=== PATIENT | female | born 1965 | race Caucasian/White ===

== ENCOUNTER 2022-03-28 09:36 | Emergency (ER) | payer BC ==
[2022-03-28] MEDS ORDERED: METOCLOPRAMIDE 5 MG/ML 2 ML VIAL IVP STA (09:48)
[2022-03-28] MEDS ORDERED: HYDROmorphone 0.5 MG/0.5 ML SYRINGE IVP STA (09:48)
[2022-03-28] MEDS ORDERED: diphenhydrAMINE 50 MG/ML 1 ML VIAL IVP STA (09:48)
[2022-03-28] MEDS ORDERED: SODIUM CHLORIDE 0.9% 1,000 ML IV STA (09:48)
[2022-03-28] MEDS ORDERED: SODIUM CHLORIDE 0.9% 500 ML 500 ML IV STA (09:48)
[2022-03-28 09:49] VITALS: TEMP 97
--- NOTE | 2022-03-28 09:58 | ED ---
Headache HPI - General Stated Complaint: Headache Time Seen by Provider: 03/28/22 09:40 Source: patient, EMS, RN notes reviewed Mode of arrival: EMS - History of Present Illness Initial Comments: She 6-year-old female with a benign past medical history who was brought in today because of severe headache she states is somewhat global associated with nausea vomiting she is out when it started. She was found in a pool of emesis per paramedics. No recent trauma reported no fevers chills sweats she states the pain is somewhat sharp or just hurts is 10/10 severity. She denies any previous headaches like this. No weakness to her upper or lower extremities her recall as to the onset is today. MD Complaint: headache - Related Data Allergies Allergy/AdvReac Type Severity Reaction Status Date / Time No Known Allergies Allergy Verified 03/28/22 09:49 Review of Systems ROS Statement: Those systems with pertinent positive or pertinent negative responses have been documented in the HPI. ROS Other: All systems not noted in ROS Statement are negative. Past Medical History Past Medical History: No Reported History History of Any Multi-Drug Resistant Organisms: None Reported Past Surgical History: No Surgical Hx Reported Past Psychological History: No Psychological Hx Reported Smoking Status: Never smoker Past Alcohol Use History: None Reported Past Drug Use History: None Reported General Exam - General Exam Comments Initial Comments: This is a well-developed well-nourished awake alert oriented times female she is aware of her surroundings and aware she has she just has minimal recall of the o nset of the headache and some the events surrounding it Limitations: no limitations General appearance: alert, anxious, in distress Head exam: Present: atraumatic, normocephalic, normal inspection, other (No tenderness palpation of the scalp no temporal artery tenderness) Eye exam: Present: normal appearance, PERRL, EOMI. Absent: scleral icterus, conjunctival injection, periorbital swelling ENT exam: Present: normal exam, mucous membranes moist Neck exam: Present: normal inspection, full ROM, other (No stridor JVD or bruits). Absent: tenderness, meningismus, lymphadenopathy Respiratory exam: Present: normal lung sounds bilaterally. Absent: respiratory distress, wheezes, rales, rhonchi, stridor Cardiovascular Exam: Present: regular rate, normal rhythm, normal heart sounds. Absent: systolic murmur, diastolic murmur, rubs, gallop, clicks GI/Abdominal exam: Present: soft, normal bowel sounds. Absent: distended, tenderness, guarding, rebound, rigid, bruit, pulsatile mass Extremities exam: Present: normal inspection, full ROM, normal capillary refill. Absent: tenderness, pedal edema, joint swelling, calf tenderness Back exam: Present: normal inspection Neurological exam: Present: alert, oriented X3, CN II-XII intact Psychiatric exam: Present: normal affect, anxious Skin exam: Present: warm, dry, intact, normal color. Absent: rash Course Vital Signs 03/28/22 03/28/22 03/28/22 09:38 10:10 10:21 Temperature 97 F L Pulse Rate 68 63 55 L Respiratory 18 18 18 Rate Blood Pressure 155/98 157/103 158/110 O2 Sat by Pulse 98 94 L 93 L Oximetry 03/28/22 03/28/22 03/28/22 10:22 10:30 10:40 Temperature Pulse Rate 57 L 50 L Respiratory 35 H 10 L 10 L Rate Blood Pressure 158/110 149/114 O2 Sat by Pulse 98 93 L 92 L Oximetry 03/28/22 03/28/22 03/28/22 10:50 10:54 11:00 Temperature Pulse Rate 52 L 63 51 L Respiratory 14 18 17 Rate Blood Pressure 155/105 156/104 154/112 O2 Sat by Pulse 93 L 95 91 L Oximetry 03/28/22 03/28/22 03/28/22 11:10 11:16 11:20 Temperature Pulse Rate 51 L 52 L 46 L Respiratory 13 11 L 11 L Rate Blood Pressure 128/82 135/88 135/88 O2 Sat by Pulse 90 L 91 L 90 L Oximetry 03/28/22 03/28/22 03/28/22 11:30 11:40 11:50 Temperature Pulse Rate 55 L 68 50 L Respiratory 14 19 14 Rate Blood Pressure 145/84 109/57 127/77 O2 Sat by Pulse 90 L 90 L 89 L Oximetry - Reevaluation(s) Reevaluation #1: 03/28/22 10:39 Patient did require more pain medication due to the severe headache evidence of inner cerebral bleed [place] CAT scan pending a code stroke was called and discussed the case with Dr. Amezcua. The current plan is to transfer the patient to [facility]. I did discuss this with the patient family members. Reevaluation #2: 03/28/22 11:54 Patient did get some relief from her headache after IV medications patient also was placed on nicardipine drip Reevaluation #3: 03/28/22 11:55 CT of the [place] shows evidence of a left-sided anterior making artery aneurysm with evidence of possible thrombosis and rupture considered. Please see the complete report Dr. Javier Soliz did review this as well as our radiologist at this facility. 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 Patient is to be transferred to [facility] for inpatient evaluation and treatment. I did have multiple discussions with the family as well as family members. Patient was placed on a nicardipine drip. - Lab Data Result diagrams: 03/28/22 10:25 03/28/22 10:25 Lab Results 03/28/22 03/28/22 03/28/22 Range/Units 10:25 10:25 10:25 WBC 11.1 H (3.8-10.6) k/uL RBC 4.01 (3.80-5.40) m/uL Hgb 12.4 (11.4-16.0) gm/dL Hct 36.0 (34.0-46.0) % MCV 89.8 (80.0-100.0) fL MCH 30.8 (25.0-35.0) pg MCHC 34.3 (31.0-37.0) g/dL RDW 13.0 (11.5-15.5) % Plt Count 288 (150-450) k/uL MPV 8.3 Neutrophils % 84 % Lymphocytes % 9 % Monocytes % 5 % Eosinophils % 1 % Basophils % 0 % Neutrophils # 9.4 H (1.3-7.7) k/uL Lymphocytes # 1.0 (1.0-4.8) k/uL Monocytes # 0.5 (0-1.0) k/uL Eosinophils # 0.1 (0-0.7) k/uL Basophils # 0.0 (0-0.2) k/uL PT 11.8 (9.0-12.0) sec INR 1.1 (<1.2) APTT 23.3 (22.0-30.0) sec Sodium 137 (137-145) mmol/L Potassium 3.5 (3.5-5.1) mmol/L Chloride 106 (98-107) mmol/L Carbon Dioxide 20 L (22-30) mmol/L Anion Gap 11 mmol/L BUN 13 (7-17) mg/dL Creatinine 0.65 (0.52-1.04) mg/dL Est GFR (CKD-EPI)AfAm >90 (>60 ml/min/1.73 sqM) Est GFR (CKD-EPI)NonAf >90 (>60 ml/min/1.73 sqM) Glucose 147 H (74-99) mg/dL Calcium 8.3 L (8.4-10.2) mg/dL Magnesium 1.8 (1.6-2.3) mg/dL Total Bilirubin 0.3 (0.2-1.3) mg/dL AST 20 (14-36) U/L ALT 18 (4-34) U/L Alkaline Phosphatase 52 (38-126) U/L Creatine Kinase 96 (30-135) U/L Troponin I (0.000-0.034) ng/mL Total Protein 5.9 L (6.3-8.2) g/dL Albumin 3.6 (3.5-5.0) g/dL 03/28/22 Range/Units 10:25 WBC (3.8-10.6) k/uL RBC (3.80-5.40) m/uL Hgb (11.4-16.0) gm/dL Hct (34.0-46.0) % MCV (80.0-100.0) fL MCH (25.0-35.0) pg MCHC (31.0-37.0) g/dL RDW (11.5-15.5) % Plt Count (150-450) k/uL MPV Neutrophils % % Lymphocytes % % Monocytes % % Eosinophils % % Basophils % % Neutrophils # (1.3-7.7) k/uL Lymphocytes # (1.0-4.8) k/uL Monocytes # (0-1.0) k/uL Eosinophils # (0-0.7) k/uL Basophils # (0-0.2) k/uL PT (9.0-12.0) sec INR (<1.2) APTT (22.0-30.0) sec Sodium (137-145) mmol/L Potassium (3.5-5.1) mmol/L Chloride (98-107) mmol/L Carbon Dioxide (22-30) mmol/L Anion Gap mmol/L BUN (7-17) mg/dL Creatinine (0.52-1.04) mg/dL Est GFR (CKD-EPI)AfAm (>60 ml/min/1.73 sqM) Est GFR (CKD-EPI)NonAf (>60 ml/min/1.73 sqM) Glucose (74-99) mg/dL Calcium (8.4-10.2) mg/dL Magnesium (1.6-2.3) mg/dL Total Bilirubin (0.2-1.3) mg/dL AST (14-36) U/L ALT (4-34) U/L Alkaline Phosphatase (38-126) U/L Creatine Kinase (30-135) U/L Troponin I 0.222 H* (0.000-0.034) ng/mL Total Protein (6.3-8.2) g/dL Albumin (3.5-5.0) g/dL - EKG Data -: EKG Interpreted by Me EKG shows normal: sinus rhythm EKG Comments: Sinus bradycardia rate 56 IA interval 159 QRS 107 QT/QTC 492/484 prolongation QT noted - Radiology Data Radiology results: report reviewed (I did discuss the findings with the radiologist are is evidence of intercerebral bleeding aneurysm suspected [place] CT pending), image reviewed Critical Care Time Critical Care Time: Yes Total Critical Care Time: 45 Critical Care Time: Critical care time includes initial presentation with history physical labs x- rays multiple reevaluation the patient multiple discussions with family members discussion with multiple physicians regarding the findings discussed with the paramedics both delivering the patient to this facility and V1 sending to [facility]. Disposition Clinical Impression: Hemorrhagic cerebrovascular accident (CVA) Disposition: OTHER INSTITUTION NOT DEFINED Condition: Serious Referrals: None,Stated [Primary Care Provider] - 1-2 days Decision Date: 03/28/22 Decision Time: 11:00 - Out of Hospital Transfer - Req. Specs Out of Hospital Transfer - Requested Specifics: Neurological ICU
[2022-03-28] MEDS ORDERED: HYDROmorphone 1 MG/ML 1 ML SYRINGE IVP STA (10:22)
[2022-03-28] MEDS ORDERED: niCARdipine 20 MG in SODIUM CHLORIDE 0.9% 192 ML IV SCH (10:30)
--- NOTE | 2022-03-28 10:32 | CT ---
EXAMINATION TYPE: CT brain wo con DATE OF EXAM: 03/28/2022 COMPARISON: None available HISTORY: Severe WAY CT DLP: 1099.4 mGycm Automated exposure control for dose reduction was used. TECHNIQUE: CT scan of the brain is performed without IV contrast administration. FINDINGS: Extensive subarachnoid hemorrhage mainly centered over the [place] region, perimesencephalic cistern and extending into the MCA fissures as well as along the falx bilaterally. Some blood is see n within the fourth ventricle with questionable scattered minimal subdural blood. There is effacement of the basal cisterns with swelling and crowding of the posterior fossa which may suggest increased intracranial pressure. No antonio tonsillar herniation yet. No acute parenchymal hemorrhage. No gross acute cortical infarct. No midline shift or signs of ventri cular obstruction. No gross space-occupying lesion or vasogenic edema. Unremarkable orbits. Clear visualized paranasal sinuses and mastoid air cells. Unremarkable calvarial bones. IMPRESSION: Extensive subarachnoid hemorrhage as detailed above, likely secondary to aneurysmal rupture. Recommen d further CTA of [place] and urgent neurovascular intervention consultation. Findings were discussed with the referring ER physician immediately after the CT scan was performed.
[2022-03-28 10:42] LABS: Basophils % (A) 0 %; Eosinophils # (A) 0.1 k/uL (0-0.7); Eosinophils % (A) 1 %; HGB 12.4 gm/dL (11.4-16.0); Lymphocytes % (A) 9 %; MCH 30.8 pg (25.0-35.0); MCHC 34.3 g/dL (31.0-37.0); MCV 89.8 fL (80.0-100.0); Mean Platelet Volume 8.3; Monocytes # (A) 0.5 k/uL (0-1.0); Monocytes % (A) 5 %; Neutrophils # (A) 9.4 k/uL (1.3-7.7); Neutrophils % (A) 84 %; Platelet Count 288 k/uL (150-450); RBC 4.01 m/uL (3.80-5.40); WBC 11.1 k/uL (3.8-10.6)
--- NOTE | 2022-03-28 10:42 | CT ---
EXAMINATION TYPE: CT angio COW resighini of mirza DATE OF EXAM: 03/28/2022 INDICATION: abn brain CT CT DLP: 1033.8 mGy.cm Automated Exposure Control for Dose Reduction was Utilized. TECHNIQUE AND CONTRAST: CT scan of the brain is performed with IV Contrast, as per CTA protocol. The patient injected with 10 0 mL of Isovue 370. 3-D reconstruction images were generated on an independent workstation and review ed. COMPARISON: Unenhanced scan performed earlier same day FINDINGS: Vascular irregularity is seen at the left side of the anterior communicating artery measuring about 6 .5 x 4 x 5 mm. This could represent a ruptured or partially thrombosed aneurysm. This could be the un derlying etiology of the previously seen extensive subarachnoid hemorrhage at that location. No other definite intracranial aneurysm identified. No significant arterial stenosis, occlusion or di ssection. Patent major intracranial venous sinuses. No intracranial abnormal enhancement. 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 Recommend urgent neurovascular intervention consultation.
[2022-03-28 10:51] LABS: INR 1.1 (<1.2); Partial Thromboplastin Time 23.3 sec (22.0-30.0); Prothrombin Time 11.8 sec (9.0-12.0)
[2022-03-28 10:57] LABS: ALT 18 U/L (4-34); AST 20 U/L (14-36); African American GFR (CKD) >90 (>60 ml/min/1.73 sqM); Albumin 3.6 g/dL (3.5-5.0); Alkaline Phosphatase 52 U/L (38-126); Anion Gap 11 mmol/L; Blood Urea Nitrogen 13 mg/dL (7-17); Calcium 8.3 mg/dL (8.4-10.2); Carbon Dioxide 20 mmol/L (22-30); Chloride 106 mmol/L (98-107); Creatine Kinase 96 U/L (30-135); Glucose 147 mg/dL (74-99); Magnesium 1.8 mg/dL (1.6-2.3); Non-African American GFR(CKD) >90 (>60 ml/min/1.73 sqM); Potassium 3.5 mmol/L (3.5-5.1); Sodium 137 mmol/L (137-145); Total Bilirubin 0.3 mg/dL (0.2-1.3); Total Protein 5.9 g/dL (6.3-8.2)
[2022-03-28 12:08] VITALS: BP 121/78; PULSE 53
[2022-03-28 12:19] VITALS: RESP 18
== END 2022-03-28 12:16 | disposition other institution (70) ==
LOC: EC 09:36
DX: I62.9 Nontraumatic intracranial hemorrhage, unspecified (principal)
CPT/HCPCS: 99285; 96365; 96366; 96361; 96375; 96376; 36415; 93005; 80053; 82550; 83735; 84484; 85025; 85610; 85730; 70496; 70450; J1200; J2765; J1170 ×2; Q9967

== ENCOUNTER 2022-07-16 10:45 | Day surgery (SDC) | payer BC ==
[2022-07-16 11:06] VITALS: TEMP 97.7
[2022-07-16] MEDS ORDERED: SODIUM CHLORIDE 0.9% 500 ML 500 ML IV ONE (11:06)
[2022-07-16] MEDS ORDERED: fentaNYL (PF) 50 MCG/ML 2 ML AMP ONE (12:00)
[2022-07-16] MEDS: BENZOCAINE SPRAY 1 CAN MUCOUS MEM ONE ×2 (12:17→12:30)
[2022-07-16] MEDS ORDERED: MIDAZOLAM 2 MG/2 ML VIAL IV ONE (12:31)
[2022-07-16] MEDS: fentaNYL (PF) 50 MCG/ML 2 ML AMP IV ONE ×2 (12:31→12:33)
[2022-07-16] MEDS: MIDAZOLAM 2 MG/2 ML VIAL IV ONE ×2 (12:33→12:34)
--- NOTE | 2022-07-16 12:49 | P.PCN ---
Date of Procedure: 07/16/22 Operative Findings: TRANSESOPHAGEAL ECHOCARDIOGRAM SUPPLY CHAIN ASSOCIATE: SHAYLEE TRUONG MD, RPVI INDICATION: Stroke SEDATION: Conscious sedation COMPLICATION: None LEVEL OF SEDATION Moderate sedation length of 18 minutes PROCEDURE DESCRIPTION: After obtaining an informed consent, the patient was brought to transesophageal echocardiogram room. Pulse oximetry and heart monitors were attached to the patient. The patient throat was sprayed using lidocaine. The patient was turned into left lateral position. After that a bite guard was placed. After an appropriate conscious sedation was initiated, the transesophageal echocardiogram was advanced through a bite guard into the mid esophagus. A 2-D echocardiogram images, color Doppler images, continuous wave images, pulse-wave images, of various cardiac structure were performed. After that the transesophageal echocardiogram probe was advanced into the stomach and fixed to obtain transgastric view was. The probe was brought into the mid esophagus. Inter-atrial septum was interrogated using 2D images, color Doppler images, and then contrast study. After that transesophageal echocardiogram was withdrawn out and upon withdrawing the descending thoracic aorta all the way up to the arch was evaluated. FINDING: Left ventricular dimension and systolic function appeared to be within normal limits. Right ventricular dimension and systolic function appeared to be within normal limits. The aortic valve is trileaflet valve without stenosis or regurgitation. Mitral valve is normal was mild MR. There is moderate tricuspid regurgitation seen. The left atrial appendage appeared to be free from any thrombus. The interatrial septum appeared to be aneurysmal was evidence off at least moderate size patent foramen ovale with bidirectional shunt CONCLUSION: 1. Patent foramen ovale was evidence of [id number] and potentially [id number] shunt 2. Normal left ventricular dimension and systolic from 3. Normal intracardiac valves 4. Normal left atrial appendage 5. No evidence of pericardial effusion
[2022-07-16 12:56] VITALS: RESP 10
[2022-07-16 13:35] VITALS: BP 142/75; PULSE 88
== END 2022-07-16 13:45 | disposition home or self-care (01) ==
LOC: CATHCVL 10:45
PROVIDERS: ATTEND Internal Medicine Interventional Cardiology
DX: Q21.12 Patent foramen ovale (principal); I36.1 Nonrheumatic tricuspid (valve) insufficiency; I34.0 Nonrheumatic mitral (valve) insufficiency; I10 Essential (primary) hypertension; E78.5 Hyperlipidemia, unspecified; Z82.49 Family history of ischemic heart disease and other diseases of the circulatory system
CPT/HCPCS: 93312; 93320; 93325; J2250; J3010

== ENCOUNTER 2022-09-18 08:17 | Day surgery (SDC) | payer BC ==
[2022-09-10 11:12] VITALS: BMI 25.0
[~2022-09-18 08:17] MED LIST: SODIUM CHLORIDE 0.9% 1,000 ML in EMPTY BAG 1 BAG IV ONE
[2022-09-18] MEDS ORDERED: SODIUM CHLORIDE 0.9% 1,000 ML IV ONE (08:25)
[2022-09-18 08:43] LABS: HCT 39.4 % (34.0-46.0); HGB 13.6 gm/dL (11.4-16.0); MCH 30.6 pg (25.0-35.0); MCHC 34.6 g/dL (31.0-37.0); MCV 88.4 fL (80.0-100.0); Mean Platelet Volume 8.7; Platelet Count 307 k/uL (150-450); RBC 4.46 m/uL (3.80-5.40); RDW 12.9 % (11.5-15.5); WBC 5.2 k/uL (3.8-10.6)
[2022-09-18 08:57] LABS: African American GFR (CKD) >90 (>60 ml/min/1.73 sqM); Anion Gap 8 mmol/L; Blood Urea Nitrogen 12 mg/dL (7-17); Calcium 9.4 mg/dL (8.4-10.2); Carbon Dioxide 25 mmol/L (22-30); Chloride 109 mmol/L (98-107); Glucose 98 mg/dL (74-99); Non-African American GFR(CKD) >90 (>60 ml/min/1.73 sqM); Potassium 3.7 mmol/L (3.5-5.1); Sodium 142 mmol/L (137-145)
[2022-09-18] MEDS ORDERED: HEPARIN SODIUM 1,000 UN/ML (10ML VL) ONE (08:58)
[2022-09-18] MEDS ORDERED: MIDAZOLAM 2 MG/2 ML VIAL IV ONE (09:10)
[2022-09-18] MEDS: LIDOCAINE 1% INJ 10MG/ML (30 ML VIAL-PF) SQ ONE ×2 (09:15→09:17)
[2022-09-18] MEDS: HEPARIN SODIUM 1,000 UN/ML (10ML VL) IV ONE ×2 (09:24→09:37)
[2022-09-18] MEDS ORDERED: IOPAMIDOL-370 50ML BTL INJ ONE (09:42)
--- NOTE | 2022-09-18 09:56 | P.PCN ---
Date of Procedure: 09/18/22 Operative Findings: PERCUTANEOUS CLOSURE OF FENESTRATED INTERATRIAL SEPTUM PERFORMING PHYSICIAN: Thomas Shen MD, VI PROCEDURE PERFORMED: 1. Successful percutaneous closure of fenestrated atrial septal defect (ASD) using 30 mm Amplatzer PFO Occluder with an excellent results and without any residual shunt. 2. Intracardiac echocardiogram imaging. 3. Right atrial angiogram. 4. Ultrasound-guided access of the right common femoral vein 2 INDICATION: This is a 56-year-old female patient who was diagnosis and he was fenestrated interatrial septum with bidirectional shunt. She was brought today to undergo percutaneous closure APPROACH: Right common femoral vein 2 COMPLICATION: None. LEVEL OF SEDATION: Moderate with sedation length of 30 minutes. PROCEDURE DESCRIPTION: After obtaining informed consent, the patient was brought to the cardiac laboratory courier. The right common femoral vein was cannulated x2 using micropuncture technique under ultrasound guidance, the micropuncture wire passed easily, then I placed two 8-Comoran sheath in the right groin. Subsequently I cannulated the left common femoral vein with the same technique and I placed an 8-Comoran sheath there as well. At that point, anticoagulation was initiated using heparin and the patient was given a bolus of 5,000 units of heparin IV with continuous ACT monitoring throughout the procedure. After that, the intracardiac echocardiogram probe was advanced through one of the venous sheath all the way to the right atrium under fluoroscopy guidance where we did interrogate the interatrial septum and identified the patent foramen ovale which was measured about 30 mm. S ubsequently, I did cross the defect using 0.035 J-wire with the backup support of multipurpose catheter. The wire was advanced all the way to the left upper pulmonary vein and subsequently the catheter was advanced over the wire to the left upper pulmonary vein. The 0.035 J-wire was pulled out and then I advanced a maria t wire. Subsequently, the multipurpose catheter was withdrawn out and the wire was left in the left upper pulmonary vein. After that, I did prep the Amplatzer PFO occluder under saline. The device was loaded into the payloader machine operator, which was attached to the sheath. Subsequently, I did exchange my 8-Comoran sheath into the Shuttle sheath over a 0.035 maria t wire. The sheath was advanced all the way under fluoroscopy guidance to the left atrium. Subsequently, the dilator of the sheath was withdrawn out along with the wire. After that, I did load the Amplatzer occluder under continuous saline flush to the sheath. The device was advanced all the way through the sheath were I did where I did deploy initially the left atrial occluder and then I pulled back the sheath and the left atrial occluder all the way to the interatrial septum and then I deployed the right atrial occluder after that. Before I released the device, I did interrogate the septum using ice images on multiple views. After I realized that the device was stable enough and in good position the device was released. Interrogation using ice was also performed after the device was released. By the end I did right atrial angiogram. The procedure was completed without any complication. POSTPROCEDURE MANAGEMENT: 1. Dual anti-platelet therapy. 2. An echo in 24 hours, in 1 week, in 4 weeks, as well as in 6 months.
[2022-09-18] MEDS ORDERED: SODIUM CHLORIDE 0.9% 1,000 ML IV SCH (10:00)
[2022-09-18] MEDS ORDERED: hydrALAZINE HCL 20 MG/ML 1 ML VIAL IVP PRN (10:30)
[2022-09-19] MEDS ORDERED: CLOPIDOGREL 75 MG TAB PO SCH (09:00)
[2022-09-19] MEDS ORDERED: lisinopriL 20 MG TAB PO SCH (09:00)
[2022-09-19] MEDS ORDERED: ASPIRIN 325 MG TAB PO SCH (09:00)
[2022-09-19 09:13] VITALS: TEMP 98
--- NOTE | 2022-09-19 10:45 | XR ---
EXAMINATION TYPE: XR chest 2V DATE OF EXAM: 09/19/2022 COMPARISON: None INDICATION: ASD PFO placement TECHNIQUE: Frontal and lateral views of the chest are obtained. FINDINGS: The heart size is normal. The pulmonary vasculature is normal. The lungs are clear. Azygos fissure is present. Cardiac medical intern placement is evident. IMPRESSION: 1. No acute pulmonary process.
--- NOTE | 2022-09-19 11:08 | CA ---
Transthoracic Echo Report Name: Tiffanie South Age: 56 Gender: F : 1965 Exam Date: 09/19/2022 09:06 Exam Location: [facility] Ht (in): 65 Wt (lb): 165 Ordering Physician: Thomas Shen MD ([id number]) Attending/Referring Phys: Head Soft Sugar Operator Mimi Tai RDCS Procedure CPT: Indications: Post ASD/PFO Insertion Cardiac Hx: Limited Study: Pt is post ASD/PFO closure. Technical Quality: Contrast 1: Total Dose (mL): Contrast 2: Total Dose (mL): MEASUREMENTS (Male / Female) Normal Values FINDINGS Left Ventricle Left ventricular ejection fraction is estimated at 55 %. Right Ventricle Right Atrium Left Atrium ASD Device in position. Mitral Valve Aortic Valve Tricuspid Valve Pulmonic Valve Pericardium No pericardial effusion. Aorta CONCLUSIONS Stable atrial septal device was no residual shunt No pericardial effusion Previewed by: Dr. Thomas Shen MD (Electronically Signed) Final Date: 19 September 2022 11:07
--- NOTE | 2022-09-19 11:37 | P.DS ---
Providers Attending physician: Thomas Shen Primary care physician: [facility] Course: The patient is a pleasant 56-year-old female patient was underwent yesterday successful percutaneous closure of patent foramen ovale. She was seen this morning beach she is asymptomatic which is hemodynamic is stable. The right groin is soft and nontender and with no bruises. The echo revealed stable atrial septal device with no residual shunt and no pericardial effusion The patient is going to be discharged home Plan - Discharge Summary Discharge Rx Participant: No New Discharge Prescriptions: Continue Atorvastatin Calcium 40 mg PO DAILY Ticagrelor [Brilinta] 1 tab PO BID lisinopriL [Zestril] 20 mg PO DAILY Aspirin 81 mg PO DAILY Discharge Medication List Aspirin 81 mg PO DAILY 07/12/22 [History] Atorvastatin Calcium 40 mg PO DAILY 07/12/22 [History] Ticagrelor [Brilinta] 1 tab PO BID 07/12/22 [History] lisinopriL [Zestril] 20 mg PO DAILY 07/12/22 [History] Follow up Appointment(s)/Referral(s): Thomas Shen MD [STAFF PHYSICIAN] - 1 Week Patient Instructions/Handouts: Moderate Sedation (DC), Atrial Septal Defect Repair (DC), Patent Foramen Ovale (DC) Activity/Diet/Wound Care/Special Instructions: SEE PFO/ASD CLOSURE PROCEDURE DISCHARGE INSTRUCTIONS FOR DETAILED LIST. YOUR 1 WEEK, ONE MONTH, 6 MONTH AND ONE YEAR FOLLOW UP APPTS WILL BE ON THAT INSTRUCTION ALSO.
[2022-09-19 13:12] VITALS: BP 134/88; PULSE 93; RESP 17
== END 2022-09-19 13:21 | disposition home or self-care (01) ==
LOC: CATHCVL 08:17 → 3SCARD 09:45 → CATHCVL 09-19 13:21
PROVIDERS: ATTEND Internal Medicine Interventional Cardiology
DX: Q21.11 Secundum atrial septal defect (principal); Q21.12 Patent foramen ovale; I34.0 Nonrheumatic mitral (valve) insufficiency; I34.1 Nonrheumatic mitral (valve) prolapse; I10 Essential (primary) hypertension; E78.5 Hyperlipidemia, unspecified; Z86.79 Personal history of other diseases of the circulatory system; Z79.02 Long term (current) use of antithrombotics/antiplatelets; Z79.899 Other long term (current) drug therapy; Z79.82 Long term (current) use of aspirin; Z79.1 Long term (current) use of non-steroidal anti-inflammatories (NSAID); Z87.820 Personal history of traumatic brain injury
CPT/HCPCS: 93306; 93580; 80048; 85027; 71046; 93662; C1769 ×4; C1894 ×2; C1760; C1817; J2250; J0360; J0690; J2001; J1644; Q9967

== ENCOUNTER → 2023-12-12 | Outpatient (CLI) | payer BC ==
[2023-12-12 11:36] LABS: Basophils # (A) 0.05 X 10*3/uL (0.00-0.10); Eosinophils # (A) 0.15 X 10*3/uL (0.04-0.35); HCT 41.2 % (37.2-46.3); HGB 13.7 g/dL (12.0-15.0); Lymphocytes # (A) 0.94 X 10*3/uL (0.90-5.00); MCH 30.2 pg (27.0-32.0); MCHC 33.3 g/dL (32.0-37.0); MCV 90.9 FL (80.0-97.0); Mean Platelet Volume 11.1 FL (9.5-12.2); Monocytes # (A) 0.44 X 10*3/uL (0.20-1.00); Monocytes % (A) 8.9 %; NRBC Per 100 WBC 0 X 10*3/uL (0.00-0.01); Neutrophils # (A) 3.36 X 10*3/uL (1.80-7.70); Neutrophils % (A) 67.9 %; Platelet Count 260 X 10*3/uL (140-440); RBC 4.53 X 10*6/uL (4.10-5.20); WBC 4.95 X 10*3/uL (4.50-10.00)
[2023-12-12 11:55] LABS: ALT 22 U/L (8-44); AST 18 U/L (13-35); Albumin 4.7 g/dL (3.8-4.9); Albumin/Globulin Ratio 2.04 Ratio (1.60-3.17); Alkaline Phosphatase 52 U/L (41-126); Blood Urea Nitrogen 14.4 mg/dL (9.0-27.0); Carbon Dioxide 23.9 mmol/L (21.6-31.8); Chloride 109 mmol/L (96-109); Chol/HDL Ratio 2.59 Ratio; Creatine Kinase 97 U/L (26-186); Globulin 2.3 g/dL (1.6-3.3); Glucose 99 mg/dL (70-110); LDL Cholesterol,Calculated 95.7 mg/dL (0.0-131.0); Potassium 4.5 mmol/L (3.5-5.5); Sodium 144 mmol/L (135-145); T4, Free (Free Thyroxine) 1.17 ng/dL (0.80-1.80); Total Bilirubin 0.4 mg/dL (0.3-1.2); VLDL Calculation 15.32 mg/dL (5.00-40.00)
--- NOTE | 2023-12-15 17:59 | MM ---
Reason for Exam: Screening (asymptomatic). Baseline mammogram. Patient History: Menarche at age 14. Patient has no children. Right ovary removed at age 40. Postmenopausal. Sister had breast cancer, age 45. Sister had breast cancer, age 65. Risk Values: Connie 5 year model risk: 4.2%. NCI Lifetime model risk: 22.4%. Prior Study Comparison: Patient's first Mammogram. Tissue Density: The breasts are heterogeneously dense, which may obscure small masses. Findings: Analyzed By CAD. An obscured mass is suspected at the 10:00 position posterior left breast. No suspicious microcalcifications or discrete abnormality seen on the contralateral side. Overall Assessment: Incomplete: need additional imaging evaluation, BI-RAD 0 Management: Special View Mammogram of the left breast. Diagnostic Breast Ultrasound of the left breast. Include whole left breast ultrasound with scanning of the axilla. [facility] will attempt to contact patient to return for supplemental views and ultrasound if indicated. Electronically signed and approved by: Aislinn Batista M.D. Radiologist
== END | disposition home or self-care (01) ==
LOC: RADMAMWWP 07:11
PROVIDERS: ATTEND Family Medicine
DX: Z12.31 Encounter for screening mammogram for malignant neoplasm of breast (principal); I10 Essential (primary) hypertension; E78.5 Hyperlipidemia, unspecified; Z78.0 Asymptomatic menopausal state; Z80.3 Family history of malignant neoplasm of breast
CPT/HCPCS: 36415; 77063; 77067; 80053; 80061; 82550; 83036; 84439; 84443; 85025

== ENCOUNTER → 2023-12-20 | Outpatient (CLI) | payer BC ==
--- NOTE | 2023-12-20 14:08 | MM ---
Reason for Exam: Additional evaluation requested from abnormal screening. Last screening mammogram was performed less than 1 month ago. Patient History: Menarche at age 14. Patient has no children. Right ovary removed at age 40. Postmenopausal. Sister had breast cancer, age 45. Sister had breast cancer, age 65. Risk Values: Connie 5 year model risk: 4.2%. NCI Lifetime model risk: 22.4%. Prior Study Comparison: 12/12/2023 Bilateral MG 3D screening mammo w/cad, [facility]. Tissue Density: Left: The breasts are heterogeneously dense, which may obscure small masses. Findings: Analyzed By CAD. There is a mass at posterior depth slightly medial on CC view and posterior nipple line on MLO view. Measuring 24 x 19 mm at 5.2 cm from the nipple CC view. Overall Assessment: Incomplete: need additional imaging evaluation, BI-RAD 0 Management: Diagnostic Breast Ultrasound of the left breast. Results were given to the patient verbally at the time of exam. Patient should continue monthly self-breast exams. A clinical breast exam by your physician is recommended on an annual basis. This exam should not preclude additional follow-up of suspicious palpable abnormalities. Note on Connie scores and lifetime risk: 1. A Connie score greater than 3% is considered moderate risk. If this is the case, consider specialist referral to assess eligibility for a risk reducing agent. 2. If overall lifetime risk for the development of breast cancer is 20% or higher, the patient may qualify for future screening with alternating mammogram and breast MRI. Electronically signed and approved by: Emile Young DO
--- NOTE | 2023-12-20 14:12 | USB ---
Reason for Exam: Additional evaluation requested from abnormal screening. Patient History: Menarche at age 14. Patient has no children. Right ovary removed at age 40. Postmenopausal. Sister had breast cancer, age 45. Sister had breast cancer, age 65. Risk Values: Connie 5 year model risk: 4.2%. NCI Lifetime model risk: 22.4%. Prior Study Comparison: 12/12/2023 Bilateral MG 3D screening mammo w/cad, [facility]. Findings: Technique utilized:US breast workup limited LT Image; Ultrasound imaging of: Area of concern, retroareolar region and axilla. Hypoechoic irregular shaped mass with irregular margins at 10:00 6 cm from nipple measuring up to 2.6 cm. Smaller lesion 1:00 3 cm from the nipple measuring up to 8 mm also present. There is borderline cortical thickening of multiple lymph nodes in the axilla that are suspicious. Overall Assessment: Highly suggestive of malignancy, BI-RAD 5 Management: Ultrasound Core Biopsy of the left breast. Biopsy of at least the 2 masses in the breasts with consideration for PET/CT to evaluate metastatic disease at this time. A clinical breast exam by your physician is recommended on an annual basis and results should be correlated with mammographic findings. This exam should not preclude additional follow-up of suspicious palpable abnormalities. Results were given to the patient verbally at the time of exam. Electronically signed and approved by: Emile Young DO
== END | disposition home or self-care (01) ==
LOC: RADMAMWWP 13:10
PROVIDERS: ATTEND Family Medicine
DX: R92.332 Mammographic heterogeneous density, left breast (principal); Z78.0 Asymptomatic menopausal state; Z80.3 Family history of malignant neoplasm of breast
CPT/HCPCS: 77061; 77065

== ENCOUNTER → 2024-01-02 | Day surgery (SDC) | payer BC ==
--- NOTE | 2024-01-07 14:58 | MM ---
Reason for Exam: Post Procedure Mammogram. Last screening mammogram was performed less than 1 month ago. Patient History: Menarche at age 14. Patient has no children. Right ovary removed at age 40. Postmenopausal. Sister had breast cancer, age 45. Sister had breast cancer, age 65. Risk Values: Connie 5 year model risk: 4.2%. NCI Lifetime model risk: 22.4%. Prior Study Comparison: 12/12/2023 Bilateral MG 3D screening mammo w/cad, [facility]. 12/20/2023 Left MG 3D work up w/cad , [facility]. Tissue Density: Left: The breasts are heterogeneously dense, which may obscure small masses. Pathology Description: Location: 1 o'clock. Marker Left Behind. Needle Type: Celero Cores: 4 Pathology Description: Location: 1 o'clock. Marker Left Behind. Needle Type: Celero Cores: 4 The procedure of ultrasound guided core biopsy was explained to the patient. Benefits, alternatives, and risks were discussed. An informed consent was then obtained. 2 site ultrasound core biopsy was performed at the left 10:00 in the left 1:00 positions. The patient was placed in supine positioning for imaging and for the procedure. The overlying skin was prepped and draped in usual sterile fashion. Lidocaine buffered with bicarbonate was used as anesthetic into the skin and subcutaneous tissue up to area of concern in the left 10:00 and the left 1:00 breast. Under ultrasound guidance, a 12-gauge vacuum assisted biopsy gun device was used to obtain 3 core samples obtained from 10:00 and 4 samples obtained from the left 1:00 position. Following this, a biopsy clip was left in each lesion. The patient tolerated the procedure well without any immediate complication. The patient was kept in the radiology department for short stay after the procedure and then discharged home in stable condition. Postprocedure mammogram: The patient was transferred to mammography for physician ordered post procedure mammogram for clip placement verification. Impression: Successful uncomplicated ultrasound-guided core biopsy of 2 sites left breast with pathology results pending. Pathology Results: Result: Malignant, Invasive ductal carcinoma. Pathology and radiology were reviewed. Findings are concordant. A. 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 B. 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 See surgical pathology cancer case summary and comment. Overall Assessment: Malignant Assessment: MG diagnostic mammo LT wo CAD. - Left: Known biopsy proven malignancy, BI-RAD 6. Management: Surgical Consultation of the left breast. Electronically signed and approved by: Dylan White M.D. Radiologis
== END ==
LOC: RADUSWWP 07:28
PROVIDERS: ATTEND Family Medicine
DX: D05.12 Intraductal carcinoma in situ of left breast (principal); Z78.0 Asymptomatic menopausal state
CPT/HCPCS: 88305; 88342; 88341; 77065; 19083; 19084; A4648

== ENCOUNTER → 2024-01-31 | Outpatient (CLI) | payer BC ==
--- NOTE | 2024-01-31 09:49 | CA ---
Transthoracic Echo Report Name: Tiffanie South Age: 58 Gender: F : 1965 Exam Date: 01/31/2024 07:45 Exam Location: [facility] Ht (in): 65 Wt (lb): 170 Ordering Physician: Johana Schrader MD Attending/Referring Phys: Laser Set Up Operator Emilia Eller RDCS Procedure CPT: Indications: C50.212 BR CANCER Z01.818 PRE CHEMO Cardiac Hx: ASD Device Technical Quality: Good Contrast 1: Total Dose (mL): Contrast 2: Total Dose (mL): MEASUREMENTS (Male / Female) Normal Values 2D ECHO LV Diastolic Diameter PLAX 4.6 cm 4.2 - 5.9 / 3.9 - 5.3 cm LV Systolic Diameter PLAX 2.7 cm IVS Diastolic Thickness 1.1 cm 0.6 - 1.0 / 0.6 - 0.9 cm LVPW Diastolic Thickness 1.2 cm 0.6 - 1.0 / 0.6 - 0.9 cm LV Relative Wall Thickness 0.5 RV Internal Dim ED PLAX 2.4 cm LA Systolic Diameter LX 3.9 cm 3.0 - 4.0 / 2.7 - 3.8 cm LV Diastolic Volume MOD BP 67.6 cm??? 67 - 155 / 56 - 104 cm??? LV Systolic Volume MOD BP 23.2 cm??? 22 - 58 / 19 - 49 cm??? LV Ejection Fraction MOD BP 65.7 % >= 55 % LV Cardiac Index MOD BP 1540.6 cm???/min???m??? LV Diastolic Volume MOD 4C 61.2 cm??? LV Systolic Volume MOD 4C 25.5 cm??? LV Ejection Fraction MOD 4C 58.4 % LV Cardiac Index MOD 4C 1240.4 cm???/min???m??? LV Diastolic Length 4C 7.5 cm LV Systolic Length 4C 6.0 cm LV Diastolic Volume MOD 2C 74.8 cm??? LV Systolic Volume MOD 2C 21.2 cm??? LV Ejection Fraction MOD 2C 71.7 % LV Cardiac Index MOD 2C 1863.7 cm???/min???m??? LV Diastolic Length 2C 7.5 cm LV Systolic Length 2C 6.0 cm M-MODE Aortic Root Diameter MM 2.5 cm LA Systolic Diameter MM 3.6 cm LA Ao Ratio MM 1.4 DOPPLER Mitral E Point Velocity 99.9 cm/s Mitral A Point Velocity 61.0 cm/s Mitral E to A Ratio 1.6 MV Deceleration Time 219.6 ms MV E' Velocity 9.6 cm/s Mitral E to MV E' Ratio 10.4 TR Peak Velocity 196.1 cm/s TR Peak Gradient 15.4 mmHg FINDINGS Left Ventricle Left ventricular ejection fraction is estimated at 55-60 %. Mildly increased septal wall thickness. Mildly increased posterior wall thickness. Normal left ventricular wall motion. No obvious regional wall motion abnormalities. Normal left ventricular diastolic filling pattern. Left ventricular cavity size normal. Right Ventricle Normal right ventricular size and function. Right ventricular systolic pressure within normal limits. Right Atrium Normal right atrial size. Left Atrium Normal left atrial size. ASD Device in position. Mitral Valve Structurally normal mitral valve. Mild mitral regurgitation. No mitral stenosis. Aortic Valve Trileaflet aortic valve. No aortic valve stenosis or regurgitation. Tricuspid Valve Structurally normal tricuspid valve. Trace tricuspid regurgitation. Pulmonic Valve Structurally normal pulmonic valve. No pulmonic stenosis. No pulmonic regurgitation. Pericardium No pericardial or pleural effusion. Aorta Normal size aortic root and proximal ascending aorta. CONCLUSIONS Normal LV systolic function. Mild concentric left ventricular hypertrophy. No wall motion abnormalities. Left ventricular filling pattern is within normal limits as well Normal right ventricular dimension and systolic function Normal pulmonary artery systolic pressure Atrial septal occluder in position Mild mitral regurgitation No evidence of pericardial effusion Previewed by: Dr. Thomas Shen MD (Electronically Signed) Final Date: 31 Jan 2024 09:48
--- NOTE | 2024-01-31 10:44 | USB ---
Reason for Exam: Clinical finding. Patient History: Menarche at age 14. Patient has no children. Right ovary removed at age 40. Postmenopausal. Breast cancer, left, age 58. 01/02/2024, US biopsy breast add'l VAD LT on the Left side. 01/02/2024, Malignant US biopsy breast VAD LT on the left side. Sister had breast cancer, age 45. Sister had breast cancer, age 65. Prior Study Comparison: 12/12/2023 Bilateral MG 3D screening mammo w/cad, [facility]. 12/20/2023 Left MG 3D work up w/cad LT, [facility]. 01/02/2024 Left MG diagnostic mammo LT wo CAD., [facility]. Findings: Technique utilized:US breast axilla LT Image; Ultrasound imaging of: axilla. Lymph nodes within the axilla have cortical thickness within normal limits. No suspicious lymph nodes at this time. No evidence for organizing fluid collection or mass. Overall Assessment: Benign, BI-RAD 2 Management: Screening Mammogram of both breasts in 1 year. A clinical breast exam by your physician is recommended on an annual basis and results should be correlated with mammographic findings. This exam should not preclude additional follow-up of suspicious palpable abnormalities. Results were given to the patient verbally at the time of exam. Electronically signed and approved by: Emile Young DO
== END | disposition home or self-care (01) ==
LOC: RADECHMAIN 07:22
PROVIDERS: ATTEND Internal Medicine
DX: Z01.818 Encounter for other preprocedural examination (principal); C50.212 Malignant neoplasm of upper-inner quadrant of left female breast; I34.0 Nonrheumatic mitral (valve) insufficiency; I51.7 Cardiomegaly; Z71.3 Dietary counseling and surveillance; I10 Essential (primary) hypertension; E78.5 Hyperlipidemia, unspecified; Z78.0 Asymptomatic menopausal state; Z80.3 Family history of malignant neoplasm of breast
CPT/HCPCS: 93306

== ENCOUNTER → 2024-02-10 | Outpatient (CLI) | payer BC ==
--- NOTE | 2024-02-17 11:52 | BMR ---
EXAM DATE: 02/10/2024 EXAM DESCRIPTION: MRI-Breast Bilat (W/WO Contrast) INDICATION: >20% lifetime risk for malignancy presenting for high risk surveillance COMPARISON: Comparison is made with relevant prior imaging in PACS. CONTRAST: 7.5 cc of Gadavist TECHNIQUE: Multiplanar MRI imaging of both breasts was performed with a dedicated breast coil, before and after intravenous administration of gadolinium contrast, using the standard breast mass protocol. Computer-aided detection was used to aid in interpretation. Study was performed at [facility] with Radiologic interpretation by [facility]. FINDINGS: General breast composition: The breast is heterogeneously dense Background parenchymal enhancement: Marked FINDINGS: Right Breast: Review of the dynamic contrast-enhanced series shows multiple areas of focal non mass enhancement throughout the breast, for example in the central inner breast. Left Breast: Review of the dynamic contrast-enhanced series shows an irregular enhancing mass in the upper inner breast with biopsy clip in-situ measuring 2.2 x 1.9 x 2.7 cm (603:490, 701:59). There is an additional irregular mass in the central breast at posterior depth measuring 1.0 x 0.9 by 1.1 cm with clip insitu at the site of known malignancy. There is clumped non mass enhancement extending from the biopsied mass anteriorly towards the nipple measuring 4.3 cm (AP) and 2.9 cm in the transverse dimension. The greater than 3 enlarged level 1 and level 2 axillary lymph nodes. IMPRESSION: Right Breast: Multiple areas of focal non mass enhancement scattered throughout the right breast, as this is a baseline for the patient these likely represent areas of benign parenchymal enhancement, however given recent diagnosis of breast cancer a targeted ultrasound of the right inner breast is recommended for further evaluation and possible biopsy of any suspicious sonographic findings. Left Breast: 2.7 cm mass in the upper inner breast at the site of malignancy. 1.1 cm additional mass in the central inner breast at posterior depth with clumped non mass enhancement extending from the mass anteriorly toward the nipple measuring 4.3 cm in AP and 2.9 cm in transverse dimension. Greater than 3 enlarged level 1 and level 2 axillary lymph nodes. BI-RADS Category 6- Known biopsy proven malignancy Recommendation: Surgical oncologic evaluation. Targeted right breast ultrasound. OVERALL ASSESSMENT -- BI-RADS 6 MTDD
== END | disposition home or self-care (01) ==
LOC: RADMRIMAIN 13:27
PROVIDERS: ATTEND Surgery
DX: C50.812 Malignant neoplasm of overlapping sites of left female breast (principal); N63.22 Unspecified lump in the left breast, upper inner quadrant
CPT/HCPCS: 77049; A9585

== ENCOUNTER → 2024-02-16 | Outpatient (CLI) | payer BC ==
--- NOTE | 2024-02-16 19:37 | PE ---
EXAMINATION TYPE: PET CT fusion skull to thigh DATE OF EXAM: 02/16/2024 CLINICAL INDICATION:Female, 58 years old with history of C50.812 BREAST CANCER; TECHNIQUE: Following the intravenous administration of 10.9 mCi of F-18 FDG, whole body images are performed from the skull base to the midthigh. Images are reviewed on the computer in the coronal, a xial, and sagittal planes. Reconstructed rotating images are created on independent workstation and reviewed on the computer. A non-contrast CT is performed in conjunction with the PET scan. Glucose level 98 mg/dL CT DLP: 448 mGycm, Automated exposure control for dose reduction was used. COMPARISON: CT 01/31/2024, PET/CT None, FINDINGS: Mediastinal SUV mean is 2.2. Hepatic parenchyma SUV mean is 2.8. SKULL BASE AND NECK: No suspicious radiotracer activity. CHEST, MEDIASTINUM, AND HILAR REGION: No suspicious radiotracer activity. ABDOMEN AND PELVIS: Enlarged left external iliac chain lesion measuring 14 mm in short axis max SUV 1 .5. This is -[address] imaging MUSCULOSKELETAL STRUCTURES: No suspicious radiotracer activity. OTHER CT: Metallic clip in the suprasellar region of the brain. There is atherosclerosis of the arter ial vasculature. Atrial septal defect occlusion device is present. Scattered colonic diverticula. Fat -containing umbilical hernia. 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 Azygous fissure noted. IMPRESSION: 1. Left external iliac chain lesion with density on CT imaging of fluid. Findings favor small possib le cyst. Consider short-term follow-up in 6 months with MRI pelvis with IV contrast. 2. No suspicious uptake or evidence for lymphadenopathy.
== END | disposition home or self-care (01) ==
LOC: RADPETMAIN 07:30
PROVIDERS: ATTEND Surgery
DX: C50.812 Malignant neoplasm of overlapping sites of left female breast (principal); K63.89 Other specified diseases of intestine; R93.89 Abnormal findings on diagnostic imaging of other specified body structures
CPT/HCPCS: 78815; A9552

== ENCOUNTER → 2024-03-16 | Outpatient (CLI) | payer BC ==
--- NOTE | 2024-03-16 14:46 | USB ---
Reason for Exam: Additional evaluation requested from prior study. Patient History: Menarche at age 14. Patient has no children. Right ovary removed at age 40. Postmenopausal. Breast cancer, left, age 58. 01/02/2024, US biopsy breast add'l VAD LT on the Left side. 01/02/2024, Malignant US biopsy breast VAD LT on the left side. Sister had breast cancer, age 45. Sister had breast cancer, age 65. Technique: Method: Targeted. Elastography: Strain. Patient Position: Supine. Prior Study Comparison: 12/12/2023 Bilateral MG 3D screening mammo w/cad, [facility]. 12/20/2023 Left MG 3D work up w/cad LT, [facility]. 12/20/2023 Left US breast workup limited LT, [facility]. 01/02/2024 Left MG diagnostic mammo LT wo CAD., [facility]. 01/31/2024 Left US breast axilla LT, [facility]. Findings: The medial section of the breast of the right breast, the axilla of the right breast and the retroareolar of the right breast were scanned. At the 12:00 position 3 cm from nipple is a area of posterior shadowing which is antiparallel to the chest. Biopsy is recommended Additional areas of suspicion may be present including 1:00 position 2 cm from the nipple near the chest wall measuring 0.7 x 0.5 x 0.7 cm. There are additional hypoechoic area without good through transmission measuring 1.5 x 0.5 x 1.0 cm is in the 3:00 position 2 cm from the nipple. Additional workup of these areas may be required depending on biopsy results will suspicious finding 12:00. These areas may correlate with MRI findings. Overall Assessment: Suspicious, BI-RAD 4 Management: Ultrasound Core Biopsy of the right breast. A clinical breast exam by your physician is recommended on an annual basis and results should be correlated with mammographic findings. This exam should not preclude additional follow-up of suspicious palpable abnormalities. Results were given to the patient verbally at the time of exam. Electronically signed and approved by: Hugh Gonzales D.O. Radiologis
== END | disposition home or self-care (01) ==
LOC: RADUSWWP 13:54
PROVIDERS: ATTEND Surgery
DX: C50.812 Malignant neoplasm of overlapping sites of left female breast (principal)

== ENCOUNTER → 2024-04-01 | Day surgery (SDC) | payer BC ==
--- NOTE | 2024-04-07 09:45 | MM ---
Reason for Exam: Post Procedure Mammogram. Last screening mammogram was performed 4 month(s) ago. Patient History: Menarche at age 14. Patient has no children. Right ovary removed at age 40. Postmenopausal. Breast cancer, left, age 58. 01/02/2024, US biopsy breast add'l VAD LT on the Left side. 01/02/2024, Malignant US biopsy breast VAD LT on the left side. Sister had breast cancer, age 45. Sister had breast cancer, age 65. Prior Study Comparison: 12/12/2023 Bilateral MG 3D screening mammo w/cad, [facility]. 12/20/2023 Left MG 3D work up w/cad LT, [facility]. 01/02/2024 Left MG diagnostic mammo LT wo CAD., [facility]. 03/16/2024 Right US breast RT, [facility]. Tissue Density: Right: The breasts are heterogeneously dense, which may obscure small masses. Pathology Description: Location: 12 o'clock. Marker Left Behind. Needle Type: Mammotome Cores: 7 Gauge: 13 The procedure of ultrasound guided core biopsy was explained to the patient. Benefits, alternatives, and risks were discussed. An informed consent was then obtained. The focal shadowing area at the 12:00 position in the right breast is identified and targeted for biopsy. We note overall shadowing breast tissue in this patient. 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 The patient was placed in supine positioning for imaging and for the procedure. The overlying skin was prepped and draped in usual sterile fashion. Lidocaine was used as anesthetic into the skin and subcutaneous tissue up to area of concern in the 12:00 right breast. Under ultrasound guidance, a 13-gauge vacuum-assisted mammotome biopsy gun was used to obtain 7 core samples. We note that the biopsy target changed in appearance after passing the biopsy needle through the area. Additional directional sampling was utilized. Following this, a butterfly clip was left in lesion. The patient tolerated the procedure well without any immediate complication. The patient was kept in the radiology department for short stay after the procedure and then discharged home in stable condition. Postprocedure mammogram: The patient was transferred to mammography for physician ordered post procedure mammogram for clip placement verification. Post procedure mammogram shows slight clip at the upper outer quadrant. Dense tissues are present throughout. IMPRESSION: Successful, uncomplicated ultrasound guided core biopsy of a call center representative shadowing area in the right breast. Patient with biopsy-proven left breast cancer. Full pathology results to follow. Pathology Results: Result: Benign, Fibrocystic change. Pathology and radiology were reviewed. Findings are concordant. RIGHT BREAST TWELVE O'CLOCK POSITION 3CM FROM NIPPLE, ULTRASOUND GUIDED CORE BIOPSY: Hypocellular fibrosis and focal fibrocystic change with apocrine metaplasia (see note). Focal microcalcification present. Notes The findings seen may represent fibrous scar or a fibroadenoma. Clinical correlation with imaging studies is suggested, as deemed clinically appropriate. Overall Assessment: Benign Assessment: MG diagnostic mammo RT wo CAD - Right: Benign, BI-RAD 2. Management: Diagnostic Mammogram of the right breast in 6 months. Not compatible with fibroadenoma but can be seen. Electronically signed and approved by: Aislinn Batista M.D. Radiologist
== END ==
LOC: RADUSWWP 07:51
PROVIDERS: ATTEND Surgery
DX: N60.81 Other benign mammary dysplasias of right breast (principal); R92.8 Other abnormal and inconclusive findings on diagnostic imaging of breast; Z78.0 Asymptomatic menopausal state; Z90.721 Acquired absence of ovaries, unilateral; Z80.3 Family history of malignant neoplasm of breast
CPT/HCPCS: 88305; 77065; 19083; A4648

== ENCOUNTER → 2024-06-08 | Outpatient (CLI) | payer BC ==
--- NOTE | 2024-06-11 16:08 | BMR ---
EXAM DATE: 06/08/2024 EXAM DESCRIPTION: MRI-Breast Bilat (W/WO Contrast) INDICATION: Bilateral breast cancer, on neoadjuvant treatment COMPARISON: Comparison was made to prior relevant imaging available in PACS TECHNIQUE: Multiplanar multisequence breast MRI was performed prior to and after administration of 7 mL of Gadavist intravenously. Post processing was performed utilizing a [employer] workstation. The exam was performed at the [facility] and was provided to review by [facility]. FINDINGS: There is mild, symmetric background parenchymal enhancement in breasts that are composed of heterogeneous fibroglandular tissue. RIGHT BREAST: Review of the dynamic contrast enhanced series shows no definitive rapidly enhancing masses or suspicious enhancement patterns. No suspicious enhancement pattern associated with signal void from biopsy clip in the in the upper outer mid to posterior depth of the right breast which correspond to biopsy-proven malignancy (series 505, image 500 and series 601, image 169). Scattered enhancing foci throughout the breast, none of them looking different than the rest. The T2 weighted series demonstrate oval well- circumscribed 0.8 x 0.3 cm T2 hyperintense lesion in the area of biopsy clip which likely represent evolving small hematoma/biopsy changes (series 401, image 40). LEFT BREAST: Review of the dynamic contrast enhanced series shows interval resolution of previously seen enhancing mass in the upper inner posterior depth of the breast compatible with biopsy-proven malignancy. Biopsy clip is present (series 505, image 500 and series 601 image 61) without associated suspicious enhancement pattern. Previously seen suspicious non mass enhancement extending from the biopsied mass toward the nipple is resolved as well. There are scattered enhancing foci throughout the breast, majority similar in appearance, one most pronounced in the central mid to posterior depth of the breast (series 505, image 428 and series 601, image 51). The T2 weighted series demonstrate scattered nonenhancing T2 hyperintense changes, the largest 1.0 x 0.7 cm in the area of prior malignancy (series 401, image 40), which likely represent combination of evolving post biopsy changes and scattered small cysts. LYMPH NODES: Interval decreased size of previously mildly enlarged axillary lymph nodes. No axillary or internal mammary lymphadenopathy at this time. IMPRESSION: 1. RIGHT BREAST: No definitive rapidly enhancing masses or suspicious enhancement patterns in the breast. Signal void from biopsy clip in the upper outer breast marking the area of biopsy-proven malignancy without associated suspicious enhancement. Scattered enhancing foci throughout the breast, none different than the rest, likely compatible with background parenchymal enhancement, residual malignancy cannot be completely excluded. 2. LEFT BREAST: Almost complete resolution of previously present enhancing mass and non mass enhancement in the breast compatible with biopsy-proven malignancy. No definitive rapidly enhancing masses or suspicious enhancement patterns in the left breast at this time. Scattered enhancing foci throughout the breast, one most conspicuous in the central mid to posterior depth of the breast, the rest non different than the others, likely compatible with background parenchymal enhancement, residual malignancy cannot be completely excluded. Recommend short-term follow-up. OVERALL ASSESSMENT- BI-RADS 6 ANNUAL SCREENING BREAST MRI IN ADDITION TO MAMMOGRAPHY IS RECOMMENDED IN PATIENTS WITH LIFETIME RISK OF BREAST CANCER >20% MTDD
== END | disposition home or self-care (01) ==
LOC: RADMRIMAIN 14:22
PROVIDERS: ATTEND Surgery
DX: C50.812 Malignant neoplasm of overlapping sites of left female breast
CPT/HCPCS: 77049

== ENCOUNTER → 2024-07-15 | Outpatient (CLI) | payer BC ==
--- NOTE | 2024-07-16 14:17 | CA ---
Transthoracic Echo Report Name: Tiffanie South Age: 58 Gender: F : 1965 Exam Date: 07/15/2024 12:56 Exam Location: [place] [facility] Ht (in): 65 Wt (lb): 157 Ordering Physician: Johana Schrader MD Attending/Referring Phys: Stitcher Standard Machine Deanna Thomas RDCS Procedure CPT: Indications: Z01.818 CHEMO PRE TESTING Cardiac Hx: Technical Quality: Fair Contrast 1: Total Dose (mL): Contrast 2: Total Dose (mL): MEASUREMENTS (Male / Female) Normal Values 2D ECHO LV Diastolic Diameter PLAX 4.5 cm 4.2 - 5.9 / 3.9 - 5.3 cm LV Systolic Diameter PLAX 2.7 cm IVS Diastolic Thickness 1.2 cm 0.6 - 1.0 / 0.6 - 0.9 cm LVPW Diastolic Thickness 1.2 cm 0.6 - 1.0 / 0.6 - 0.9 cm LV Relative Wall Thickness 0.6 RV Internal Dim ED PLAX 2.9 cm LA Volume 30.4 cm??? 18 - 58 / 22 - 52 cm??? LA Volume Index 16.7 cm???/m??? 16 - 28 cm???/m??? M-MODE Aortic Root Diameter MM 2.7 cm LA Systolic Diameter MM 4.1 cm LA Ao Ratio MM 1.5 AV Cusp Separation MM 2.1 cm DOPPLER AV Peak Velocity 139.6 cm/s AV Peak Gradient 7.8 mmHg AV Mean Velocity 92.0 cm/s AV Mean Gradient 3.8 mmHg AV Velocity Time Integral 27.6 cm LVOT Peak Velocity 119.6 cm/s LVOT Peak Gradient 5.7 mmHg LVOT Velocity Time Integral 22.3 cm MV Area PHT 4.5 cm??? Mitral E Point Velocity 88.0 cm/s Mitral A Point Velocity 81.2 cm/s Mitral E to A Ratio 1.1 MV Deceleration Time 167.3 ms MV E' Velocity 11.2 cm/s Mitral E to MV E' Ratio 7.9 FINDINGS Left Ventricle Mildly increased left ventricular wall thickness. Left ventricular cavity size normal. Normal left ventricular systolic function with no obvious regional wall motion abnormalities. Left ventricular ejection fraction is estimated at 55-60 %. Grade 1 diastolic dysfunction. Right Ventricle Normal right ventricular size and function. Right ventricular systolic pressure within normal limits. Right Atrium Normal right atrial size. Left Atrium Normal left atrial size. Mitral Valve Structurally normal mitral valve. No mitral stenosis, regurgitation or prolapse. Aortic Valve Trileaflet aortic valve. No aortic valve stenosis or regurgitation. Tricuspid Valve Structurally normal tricuspid valve. Trace tricuspid regurgitation. Pulmonic Valve Structurally normal pulmonic valve. Pericardium No pericardial effusion. Aorta Normal size aortic root and proximal ascending aorta. CONCLUSIONS Left ventricular ejection fraction 55-60% Mild increased left ventricular wall thickness No mitral regurgitation Trace tricuspid regurgitation No pericardial effusion Previewed by: Dr. Ethan Birmingham DO (Electronically Signed) Final Date: 16 July 2024 14:16
== END | disposition home or self-care (01) ==
LOC: RADECHMAIN 12:42
PROVIDERS: ATTEND Internal Medicine
CPT/HCPCS: 93306

== ENCOUNTER → 2025-04-05 | Outpatient (CLI) | payer BC ==
--- NOTE | 2025-04-05 08:21 | MM ---
Reason for Exam: Screening (asymptomatic). Last screening mammogram was performed 12 month(s) ago. Patient History: Menarche at age 14. Patient has no children. Right ovary removed at age 40. Postmenopausal. Breast cancer, left, age 58. 2023, Mastectomy on the Left side. 04/01/2024, Benign US biopsy breast VAD RT on the right side. 01/02/2024, US biopsy breast add'l VAD LT on the Left side. 01/02/2024, Malignant US biopsy breast VAD LT on the left side. 2023, Radiation Therapy on the left side. 2023, Chemotherapy. Sister had breast cancer, age 45. Sister had breast cancer, age 65. Prior Study Comparison: 12/20/2023 Left MG 3D work up w/cad LT, [facility]. 01/02/2024 Left MG diagnostic mammo LT wo CAD., [facility]. 04/01/2024 Right MG diagnostic mammo RT wo CAD, [facility]. Tissue Density: Right: The breasts are heterogeneously dense, which may obscure small masses. Findings: Biopsy clip in the right breast is redemonstrated. There is no suspicious group of microcalcifications or new suspicious mass in the right breast. Overall Assessment: Benign, BI-RAD 2 Management: Screening Mammogram of the right breast in 1 year. . Patient should continue monthly self-breast exams. A clinical breast exam by your physician is recommended on an annual basis. This exam should not preclude additional follow-up of suspicious palpable abnormalities. Note on Connie scores and lifetime risk: 1. A Connie score greater than 3% is considered moderate risk. If this is the case, consider specialist referral to assess eligibility for a risk reducing agent. 2. If overall lifetime risk for the development of breast cancer is 20% or higher, the patient may qualify for future screening with alternating mammogram and breast MRI. [facility], , 04/05/2025 8:18 AM. Electronically signed and approved by: Tobias George M.D.
== END | disposition home or self-care (01) ==
LOC: RADMAMWWP 07:44
PROVIDERS: ATTEND Surgery
DX: Z12.31 Encounter for screening mammogram for malignant neoplasm of breast (principal); R92.331 Mammographic heterogeneous density, right breast; Z78.0 Asymptomatic menopausal state; Z80.3 Family history of malignant neoplasm of breast; Z85.3 Personal history of malignant neoplasm of breast; Z90.12 Acquired absence of left breast and nipple
CPT/HCPCS: 77067